=== PATIENT | male | born 1940 | race Caucasian/White ===

== ENCOUNTER 2021-10-08 12:45 | Outpatient (CLI) | payer MEDICARE, BC | END 2021-10-08 12:46 | disposition home or self-care (01) | LOC: CSHULT 12:45 | PROVIDERS: ATTEND Otolaryngology Plastic Surgery within the Head & Neck | DX: E04.1 Nontoxic single thyroid nodule (principal) | CPT/HCPCS: 76536 ==

== ENCOUNTER 2021-11-05 08:55 | Outpatient (CLI) | payer MEDICARE, BC ==
[2021-11-05 10:30] LABS: Hemoglobin 18.1 g/dL (13.5-17.5); Mean Corpuscular HGB CONC 35.1 g/dL (32.0-36.0); Mean Corpuscular Hemoglobin 31.3 pg (27.0-33.0); Mean Corpuscular Volume 89.3 fl (81.2-95.1); Mean Platelet Volume 9.7 fl (7.4-10.4); Platelet Count 142 10x3/uL (150-450); RBC Distribution Width 12.8 % (11.5-14.5); Red Blood Cell (RBC) Count 5.78 10x6/uL (4.32-5.72); White Blood Cell (WBC) Count 7.5 10x3/uL (3.5-10.5)
[2021-11-05 11:22] LABS: Anion Gap 13 mmol/L (10-20); BUN (Urea Nitrogen) 27 mg/dL (8.4-25.7); Calc. Creatinine Clearance 0 mL/min (70-130); Carbon Dioxide 28 mmol/L (23-31); Chloride 105 mmol/L (98-107); Glucose 90 mg/dL (83-110); Sodium 141 mmol/L (136-145)
[2021-11-05 23:27] LABS: SARS-CoV-2 PCR by NAA Not Detected (NotDetected)
== END 2021-11-05 08:56 | disposition home or self-care (01) ==
LOC: CSHLAB 08:55
PROVIDERS: ATTEND Otolaryngology Plastic Surgery within the Head & Neck
DX: Z01.818 Encounter for other preprocedural examination (principal); Z20.822 Contact with and (suspected) exposure to COVID-19
CPT/HCPCS: 80048; 85027; 93005; 93010; U0003; U0005

== ENCOUNTER 2021-11-10 05:29 | Day surgery (SDC) | payer MEDICARE, BC ==
[2021-11-07 08:46] VITALS: BMI 26.4
[2021-11-10] MEDS ORDERED: Lidocaine 1% MPF 2 ML VIAL ONE (06:11)
[2021-11-10] MEDS ORDERED: PROPOFOL 20 ML ONE ×2 (06:33→07:23)
[2021-11-10] MEDS ORDERED: Fentanyl 100 MCG/2 ML VIAL ONE ×2 (06:33→07:41)
[2021-11-10] MEDS ORDERED: Rocuronium Bromide 10 MG/ML (10ML VIAL) ONE (06:34)
[2021-11-10] MEDS ORDERED: Dexamethasone 20 MG/5 ML VIAL ONE (06:34)
[2021-11-10] MEDS ORDERED: Midazolam HCl 2 mg/2 ml Vial ONE (06:34)
[2021-11-10] MEDS ORDERED: Ondansetron PF 4 MG/2 ML Vial ONE (06:34)
[2021-11-10] MEDS ORDERED: CEFAZOLIN 1 GM VIAL ONE (06:59)
[2021-11-10] MEDS ORDERED: Glycopyrrolate 0.2 MG/ML 5 ML SYRINGE ONE (07:15)
[2021-11-10] MEDS ORDERED: ePHEDrine Sulfate 50 MG/10 ML VIAL ONE (07:16)
[2021-11-10] MEDS ORDERED: Lidocaine 1% w/Epinephrine 1:100K 20 ML VIAL ONE (07:24)
[2021-11-10] MEDS ORDERED: HYDROcodone/Acetaminophen 5/325 mg Tablet ONE (09:49)
== END 2021-11-10 09:58 | disposition home or self-care (01) ==
LOC: CSHSDC 05:29
PROVIDERS: ATTEND Otolaryngology Plastic Surgery within the Head & Neck
PROC: 0GTH0ZZ Resection of Right Thyroid Gland Lobe, Open Approach (ICD-10-PCS; principal; 2021-11-10)
DX: E04.1 Nontoxic single thyroid nodule (principal); Z79.899 Other long term (current) drug therapy; Z79.4 Long term (current) use of insulin; Z79.82 Long term (current) use of aspirin; I10 Essential (primary) hypertension; I25.10 Atherosclerotic heart disease of native coronary artery without angina pectoris; E11.9 Type 2 diabetes mellitus without complications; Z87.891 Personal history of nicotine dependence
CPT/HCPCS: 88307; J0690; J1100; J2250; J2405; J2704; J3010

== ENCOUNTER 2023-03-25 22:45 | Emergency (ER) | payer MEDICARE ==
[2023-03-26] MEDS ORDERED: Bupivacaine PF 0.5% 30 ML VIAL ONE (00:02)
== END 2023-03-26 00:45 | disposition home or self-care (01) ==
LOC: CSHERS 22:45
DX: T85.625A Displacement of other nervous system device, implant or graft, initial encounter (principal); E11.9 Type 2 diabetes mellitus without complications; I10 Essential (primary) hypertension

== ENCOUNTER 2023-04-02 15:36 | Observation (INO) | payer MEDICARE ==
[~2023-04-02 15:36] MED LIST: Iopamidol 370 76% 100 ML VIAL ONE
[2023-04-02 16:29] LABS: #Eosinphils 0.2 10x3/uL (0.0-0.5); #Monocytes 0.5 10x3/uL (0.0-1.1); #Neutrophils 5.9 10x3/uL (1.5-8.4); %Basophils 0.5 % (0.0-2.0); %Eosinophils 2.3 % (0.0-6.0); %Lymphocytes 16.1 % (18.0-47.0); %Monocytes 5.7 % (0.0-10.0); %Neutrophils 74.8 % (40.0-75.0); Hemoglobin 15.6 g/dL (13.5-17.5); Mean Corpuscular HGB CONC 35.5 g/dL (32.0-36.0); Mean Corpuscular Hemoglobin 31.9 pg (27.0-33.0); Mean Corpuscular Volume 89.8 fl (81.2-95.1); Mean Platelet Volume 9.2 fl (7.4-10.4); Platelet Count 182 10x3/uL (150-450); RBC Distribution Width 13.1 % (11.5-14.5); Red Blood Cell (RBC) Count 4.89 10x6/uL (4.32-5.72); White Blood Cell (WBC) Count 7.8 10x3/uL (3.5-10.5)
[2023-04-02] MEDS ORDERED: Aspirin Chewable 81 MG TAB ONE ×2 (16:37→16:42)
[2023-04-02 16:51] LABS: ALT (SGPT) 25 U/L (8-55); AST (SGOT) 24 U/L (5-34); Albumin 4.3 g/dL (3.4-4.8); Alkaline Phosphatase 50 U/L (40-110); Anion Gap 13 mmol/L (10-20); BUN (Urea Nitrogen) 32 mg/dL (8.4-25.7); Bilirubin, Total 1.6 mg/dL (0.2-1.2); CK (CPK) 149 U/L (30-200); Calc. Creatinine Clearance 0 mL/min (70-130); Calcium 9.9 mg/dL (7.8-10.44); Carbon Dioxide 28 mmol/L (23-31); Chloride 102 mmol/L (98-107); Estimated GFR 68; Glucose 105 mg/dL (83-110); Lipase 44 U/L (8-78); Potassium 4.1 mmol/L (3.5-5.1); Protein, Total 6.3 g/dL (5.8-8.1); Sodium 139 mmol/L (136-145)
[2023-04-02] MEDS ORDERED: Furosemide 40 MG/4 ML VIAL ONE (17:33)
[2023-04-02] MEDS ORDERED: Nitroglycerin 2% Ointment 1 INCH/1 GM Packet ONE (17:33)
[2023-04-02] MEDS ORDERED: Calcium Carbonate 500 MG ChewTAB PO PRN (19:08)
[2023-04-02] MEDS ORDERED: Dextrose 5% in Water 1,000 ML IV PRN (19:08)
[2023-04-02] MEDS ORDERED: HYDROcodone/Acetaminophen 5/325 mg Tablet PO PRN (19:08)
[2023-04-02] MEDS ORDERED: Dextrose 50% Abboject 50 ML SYRINGE SLOW IVP PRN (19:08)
[2023-04-02] MEDS ORDERED: HumaLOG 300 UNITS/3 ML VIAL SC PRN (19:08)
[2023-04-02] MEDS ORDERED: Ondansetron PF 4 MG/2 ML Vial IVP PRN (19:08)
[2023-04-02] MEDS ORDERED: Acetaminophen 325 MG TAB PO PRN (19:08)
[2023-04-02] MEDS ORDERED: Guaifenesin DM 100-10/5 ML UDCUP PO PRN (19:08)
[2023-04-02] MEDS ORDERED: Senokot S 8.6-50 MG TAB PO PRN (19:08)
[2023-04-02 19:26] LABS: Bilirubin Neg (Negative); Blood, Urine Negative (Negative); Clarity Clear (Clear); Glucose, Urine (Dipstick) >=1000 mg/dL (Negative); Ketone, Urine Negative (Negative); Leukocyte Negative (Negative); Nitrite Negative (Negative); Protein, Urine (Dipstick) Negative (Neg-Trace); Specific Gravity, Urine 1.015 (1.005-1.030); Urobilinogen Normal mg/dL (Less than 2)
[2023-04-02 19:37] LABS: RBC/HPF 0-3 HPF (0-3); Squamous Epithelial None Seen HPF (0-3); WBC/HPF 0-3 HPF (0-3)
[2023-04-02 19:38] LABS: Bacteria/HPF Rare-Few HPF (None Seen)
[2023-04-02 20:11] LABS: Troponin I Less than 0.010 ng/mL (< 0.028)
[2023-04-02] MEDS ORDERED: Aspirin Chewable 81 MG TAB PO SCH (21:00)
[2023-04-02] MEDS ORDERED: Rosuvastatin 20 MG TAB PO SCH (21:00)
[2023-04-02 22:06] VITALS: BMI 27.1
[2023-04-02 23:23] LABS: Troponin I Less than 0.010 ng/mL (< 0.028)
[2023-04-03 04:24] LABS: Anion Gap 15 mmol/L (10-20); BUN (Urea Nitrogen) 28 mg/dL (8.4-25.7); Calc. Creatinine Clearance 68 mL/min (70-130); Calcium 9.5 mg/dL (7.8-10.44); Carbon Dioxide 28 mmol/L (23-31); Chloride 101 mmol/L (98-107); Estimated GFR 69; Glucose 93 mg/dL (83-110); Potassium 3.6 mmol/L (3.5-5.1); Sodium 140 mmol/L (136-145)
[2023-04-03] MEDS ORDERED: Furosemide 40 MG/4 ML VIAL SLOW IVP SCH (06:00)
[2023-04-03] MEDS ORDERED: Empagliflozin 10 MG TAB PO SCH (09:00)
[2023-04-03] MEDS ORDERED: Cholecalciferol 1,000 UNITS (25 MCG) TAB PO SCH (09:00)
[2023-04-03] MEDS ORDERED: Losartan Potassium 50 MG TAB PO SCH (09:00)
[2023-04-03] MEDS ORDERED: Lantus 1000 UNITS/10 ML VIAL SC SCH (09:00)
[2023-04-03 12:21] VITALS: BP 119/68; TEMP 97.8
[2023-04-03] MEDS ORDERED: Furosemide 40 MG TAB PO SCH (14:00)
== END 2023-04-03 13:32 | disposition home or self-care (01) ==
LOC: CSHERS 15:36 → INTOOBSV 18:12 → CSHTELE 18:12
PROVIDERS: ADMIT Internal Medicine; ATTEND Internal Medicine
DX: R60.0 Localized edema (principal); R06.02 Shortness of breath; K44.9 Diaphragmatic hernia without obstruction or gangrene; I25.84 Coronary atherosclerosis due to calcified coronary lesion; E78.5 Hyperlipidemia, unspecified; I13.0 Hypertensive heart and chronic kidney disease with heart failure and stage 1 through stage 4 chronic kidney disease, or unspecified chronic kidney disease; N18.2 Chronic kidney disease, stage 2 (mild); I50.9 Heart failure, unspecified; E11.9 Type 2 diabetes mellitus without complications; R06.09 Other forms of dyspnea; Z85.038 Personal history of other malignant neoplasm of large intestine; Z95.1 Presence of aortocoronary bypass graft; Z79.82 Long term (current) use of aspirin; Z79.899 Other long term (current) drug therapy; Z91.048 Other nonmedicinal substance allergy status; Z88.8 Allergy status to other drugs, medicaments and biological substances; Z47.31 Aftercare following explantation of shoulder joint prosthesis
CPT/HCPCS: 71275; 80048; 80053; 81001; 82550; 82962; 83605; 83690; 83880; 84443; 84484 ×3; 85025; 93005; 93306; 93970; 96374; 96376; 99285; G0378 ×3; 36415; 36416; J1815; J1940; Q9967

== ENCOUNTER 2023-04-06 11:23 | Emergency (ER) | payer MEDICARE ==
[2023-04-06 12:11] LABS: #Eosinphils 0.1 10x3/uL (0.0-0.5); #Monocytes 0.5 10x3/uL (0.0-1.1); #Neutrophils 5.9 10x3/uL (1.5-8.4); %Basophils 0.5 % (0.0-2.0); %Eosinophils 1.7 % (0.0-6.0); %Lymphocytes 18.1 % (18.0-47.0); %Monocytes 6.2 % (0.0-10.0); %Neutrophils 72.6 % (40.0-75.0); Hemoglobin 16.6 g/dL (13.5-17.5); Mean Corpuscular HGB CONC 35.6 g/dL (32.0-36.0); Mean Corpuscular Hemoglobin 32.3 pg (27.0-33.0); Mean Corpuscular Volume 90.7 fl (81.2-95.1); Mean Platelet Volume 9.1 fl (7.4-10.4); Platelet Count 186 10x3/uL (150-450); Red Blood Cell (RBC) Count 5.14 10x6/uL (4.32-5.72); White Blood Cell (WBC) Count 8.1 10x3/uL (3.5-10.5)
[2023-04-06 12:29] LABS: ALT (SGPT) 24 U/L (8-55); AST (SGOT) 21 U/L (5-34); Albumin 4.5 g/dL (3.4-4.8); Alkaline Phosphatase 52 U/L (40-110); Anion Gap 15 mmol/L (10-20); BUN (Urea Nitrogen) 37 mg/dL (8.4-25.7); Bilirubin, Total 2.5 mg/dL (0.2-1.2); Calc. Creatinine Clearance 0 mL/min (70-130); Calcium 8.9 mg/dL (7.8-10.44); Carbon Dioxide 28 mmol/L (23-31); Chloride 104 mmol/L (98-107); Estimated GFR 54; Globulin 1.7 g/dL (2.4-3.5); Glucose 91 mg/dL (83-110); Potassium 3.9 mmol/L (3.5-5.1); Protein, Total 6.2 g/dL (5.8-8.1); Sodium 143 mmol/L (136-145)
[2023-04-06 13:07] LABS: Bilirubin Neg (Negative); Blood, Urine Negative (Negative); Clarity Clear (Clear); Glucose, Urine (Dipstick) 250 mg/dL (Negative); Ketone, Urine Negative (Negative); Leukocyte Negative (Negative); Nitrite Negative (Negative); Protein, Urine (Dipstick) Negative (Neg-Trace); Urobilinogen Normal mg/dL (Less than 2)
== END 2023-04-06 15:10 | disposition home or self-care (01) ==
LOC: CSHERS 11:23
DX: N20.0 Calculus of kidney (principal); R39.11 Hesitancy of micturition; I11.0 Hypertensive heart disease with heart failure; I50.9 Heart failure, unspecified; E11.9 Type 2 diabetes mellitus without complications
CPT/HCPCS: 74176; 80053; 81003; 83690; 83880; 84484; 85025; 99284; G0103; 36415

== ENCOUNTER 2024-01-18 14:31 | Outpatient (CLI) | payer MEDICARE | END 2024-01-18 14:32 | disposition home or self-care (01) | LOC: CSHMRI 14:31 | PROVIDERS: ATTEND Orthopaedic Surgery | DX: Z98.890 Other specified postprocedural states (principal); S46.012D Strain of muscle(s) and tendon(s) of the rotator cuff of left shoulder, subsequent encounter; M25.412 Effusion, left shoulder ==

== ENCOUNTER 2024-10-25 09:30 | Outpatient (CLI) | payer MEDICARE | END 2024-10-25 09:31 | disposition home or self-care (01) | LOC: CSHULT 09:30 | PROVIDERS: ATTEND Physician Assistant Medical | DX: R17 Unspecified jaundice (principal); Z85.038 Personal history of other malignant neoplasm of large intestine | CPT/HCPCS: 76705 ==